=== PATIENT | female | born 1995 | race Caucasian/White ===

== ENCOUNTER 2017-07-13 00:34 | Outpatient (CLI) | payer OTHER | END 2017-07-13 01:45 | disposition home or self-care (01) | LOC: M LDO 00:34 | DX: O47.1 False labor at or after 37 completed weeks of gestation (principal); Z3A.39 39 weeks gestation of pregnancy | CPT/HCPCS: 59025 ==

== ENCOUNTER 2017-07-15 21:35 | Inpatient (IN) | payer OTHER ==
[2017-07-15] MEDS ORDERED: LR 1,000 ML IV (22:25)
[2017-07-15] MEDS: LACTATED RINGER'S 1000 ML IV (22:43)
[2017-07-15 22:53] LABS: HEMATOCRIT 35.7 % (36.0-47.0); HEMOGLOBIN 12.5 g/dl (12.0-15.5); MEAN CORPUSCULAR HEMOGLOBIN 29.5 pg (27.0-33.0); MEAN CORPUSCULAR VOLUME 84.2 fl (80.0-96.0); PLATELET COUNT, AUTOMATED 218 10^3/uL (150-450); RED BLOOD COUNT 4.24 10^6/uL (4.00-5.40); RED CELL DISTRIBUTION WIDTH 13.2 % (11.5-14.5); WHITE BLOOD COUNT 11.9 10^3/uL (4.0-10.0)
[2017-07-15] MEDS ORDERED: FENTANYL 2MCG/ML ROPIVACAINE 0.2% IN 0.9% NACL 200ML IVBAG As Ordered (23:05)
[2017-07-15 23:13] LABS: AMPHETAMINES URINE REFLEX NEGATIVE (NEGATIVE); BARBITURATES URINE REFLEX NEGATIVE (NEGATIVE); BENZODIAZEPINES URINE REFLEX NEGATIVE (NEGATIVE); CANNABINOIDS URINE REFLEX NEGATIVE (NEGATIVE); COCAINE METABOLITE URINE REFLE NEGATIVE (NEGATIVE); METHADONE URINE REFLEX NEGATIVE (NEGATIVE); OPIATES URINE REFLEX NEGATIVE (NEGATIVE); PHENCYCLIDINE URINE REFLEX NEGATIVE (NEGATIVE)
[2017-07-15] MEDS: LR 1,000 ML IV (23:38)
[2017-07-16] MEDS ORDERED: EPIDURAL COMMENT XX (00:45)
[2017-07-16] MEDS ORDERED: FENTANYL/ROPIVACAINE/NACL BAG 200 ML EPIDURAL (00:45)
[2017-07-16] MEDS ORDERED: ONDANSETRON 4MG/2ML VIAL (J2405) IV (00:45)
[2017-07-16] MEDS ORDERED: NALOXONE INJ 0.4 MG/1 ML VIAL (J2310) IV (00:45)
[2017-07-16] MEDS ORDERED: diphenhydrAMINE INJ 50MG/ML VIAL (J1200) IV (00:45)
[2017-07-16] MEDS ORDERED: LACTATED RINGER'S 1000 ML IV (00:45)
[2017-07-16] MEDS ORDERED: REFRIGERATOR IV KEYS XX (00:45)
[2017-07-16] MEDS ORDERED: EPIDURAL/PCA KEYS XX (00:45)
[2017-07-16] MEDS: ePHEDrine SULFATE 25 MG/5 ML(5MG/ML) SYRINGE IV (01:16)
[2017-07-16] MEDS: OXYTOCIN DRIP 30 UNITS in APPROPRIATE DILUENT 1 EA IV ×2 (04:29→10:13)
[2017-07-16] MEDS: LR 1,000 ML IV (04:29)
[2017-07-16] MEDS: PRENATAL VITAMINS CHEWABLE TABLET PO (09:00)
[2017-07-16] MEDS ORDERED: MEASLES,MUMPS,RUBELLA VACCINE INJ (MMR-II) (90707) SC (10:15)
[2017-07-16] MEDS ORDERED: METOCLOPRAMIDE INJ 10MG/2ML VIAL (J2765) IV (10:15)
[2017-07-16] MEDS ORDERED: DIBUCAINE 1% OINTMENT 30GM TOP (10:15)
[2017-07-16] MEDS ORDERED: RHOGAM 300 MCG (1500 IU) INJ (J2790) IM (10:15)
[2017-07-16] MEDS ORDERED: ACETAMINOPHEN TAB 650MG DOSE (2X325MG) PO (10:15)
[2017-07-16] MEDS ORDERED: IBUPROFEN 800 MG TAB PO (10:15)
[2017-07-16] MEDS: METHYLERGONOVINE MALEATE 0.2 MG TAB PO ×3 (12:27→20:25)
[2017-07-16] MEDS: DOCUSATE SODIUM 100 MG CAP PO (20:25)
[2017-07-17] MEDS: METHYLERGONOVINE MALEATE 0.2 MG TAB PO ×3 (00:21→08:04)
[2017-07-17] MEDS: DOCUSATE SODIUM 100 MG CAP PO (08:04)
[2017-07-17] MEDS: PRENATAL VITAMINS CHEWABLE TABLET PO (08:05)
== END 2017-07-17 13:00 | disposition home or self-care (01) | DRG 775 ==
LOC: M LDO 21:35 → M OBS 07-16 13:20 → M LDI 22:31
PROVIDERS: Student in an Organized Health Care Education/Training Program
PROC: 10E0XZZ Delivery of Products of Conception, External Approach (ICD-10-PCS; principal; 2017-07-16)
PROC: 0KQM0ZZ Repair Perineum Muscle, Open Approach (ICD-10-PCS; 2017-07-16)
PROC: 10907ZC Drainage of Amniotic Fluid, Therapeutic from Products of Conception, Via Natural or Artificial Opening (ICD-10-PCS; 2017-07-16)
DX: O69.81X0 Labor and delivery complicated by cord around neck, without compression, not applicable or unspecified (principal); Z3A.39 39 weeks gestation of pregnancy; O70.1 Second degree perineal laceration during delivery; Z37.0 Single live birth